=== PATIENT | male | born 1995 | race African-American/Black ===

== ENCOUNTER 2024-12-21 00:21 | Emergency (ER) | payer MEDICARE, MEDICAID ==
[2024-12-21 00:57] LABS: #Basophils Less than 0.03 10x3/uL (0.0-0.2); #Eosinophils Less than 0.03 10x3/uL (0.0-0.5); #Monocytes 0.94 10x3/uL (0.0-1.1); #Neutrophils 4.88 10x3/uL (1.5-8.4); %Basophils 0.3 % (0.0-2.0); %Eosinophils 0.1 % (0.0-6.0); %Lymphocytes 24.3 % (18.0-47.0); %Monocytes 12.1 % (0.0-10.0); %Neutrophils 62.9 % (40.0-75.0); Hematocrit 47.4 % (38.8-50.0); Hemoglobin 15.1 g/dL (13.5-17.5); Mean Corpuscular Hemoglobin 29.5 pg (27.0-33.0); Mean Corpuscular Volume 92.8 fL (81.2-95.1); Platelet Count 173 10x3/uL (150-450); Red Blood Cell (RBC) Count 5.11 10x6/uL (4.32-5.72); White Blood Cell (WBC) Count 7.75 10x3/uL (3.5-10.5)
[2024-12-21 01:06] LABS: Glucose, Urine (Dipstick) Normal (Negative); Leukocyte Negative (Negative); Protein, Urine (Dipstick) 30 mg/dl (Neg-Trace); Specific Gravity, Urine 1.020 (1.005-1.030)
[2024-12-21 01:10] LABS: Bacteria/HPF 2+ HPF (None Seen); CAUTI Indications for Culture Alt mental st,lethar; Mucous/LPF 4+ LPF (<2+); RBC/HPF Greater than 50 HPF (0-3)
[2024-12-21 01:11] LABS: Urine Culture Reflex No No
[2024-12-21 01:22] LABS: Cocaine Metabolite Screen Negative (Negative); THC/Cannabinoid Screen PRELIM POSITIVE (Negative); Tricyclic Screen PRELIM POSITIVE (Negative)
[2024-12-21 01:27] LABS: ALT (SGPT) 29 U/L (Less than 45); AST (SGOT) 39 U/L (11-34); Acetaminophen Less than 10 mcg/mL (Less than 10); Albumin 5.2 g/dL (3.1-4.5); Alkaline Phosphatase 46 U/L (40-110); Anion Gap 15 mmol/L (10-20); BUN (Urea Nitrogen) 20 mg/dL (8.9-20.6); Bilirubin, Total 0.4 mg/dL (0.3-1.2); Calc. Creatinine Clearance 0 mL/min (70-130); Calcium 10.8 mg/dL (7.8-10.44); Carbon Dioxide 28 mmol/L (22-29); Chloride 103 mmol/L (98-107); Globulin 3.6 g/dL (2.4-3.5); Glucose 115 mg/dL (70-105); Potassium 4.4 mmol/L (3.5-5.1); Salicylate Less than 8.0 mg/dL (Less than 8.0); Sodium 142 mmol/L (136-145)
[2024-12-21] MEDS ORDERED: Divalproex Sodium 250 MG DR.TAB ONE (01:47)
[2024-12-21] MEDS ORDERED: QUEtiapine 25 MG TAB ONE (01:48)
[2024-12-21] MEDS ORDERED: Divalproex Sodium 125 mg Sprinkle Capsule PO SCH (02:00)
[2024-12-21] MEDS ORDERED: Haloperidol 1 MG TAB PO SCH (02:00)
== END 2024-12-21 10:30 ==
LOC: CSHERS 00:21
DX: R45.851 Suicidal ideations (principal); F20.0 Paranoid schizophrenia
CPT/HCPCS: 80053; 80306; 80307; 81001; 85025; 93005; J3486; 36415; 96372; 99285